=== PATIENT | male | born 1990 | race Caucasian/White ===

== ENCOUNTER 2020-06-15 03:16 | Emergency (ER) | payer SELFPAY ==
[~2020-06-15] VITALS: Ht 172.7 cm; Wt 99.8 kg
[~2020-06-15 03:16] MED LIST: ALBU.083IS; ALBU.083IS IH; ALBU90OI INH; AZIT500 PO; BENZ100A PO; BUPR75 PO; CEFD300; CEFP200 PO; CETI10 PO; CITA20 PO; DOXY100 PO; FEXO60; FLUO20 PO; FLUSAL2505 IH; METPRE4DP PO; MOMENI; PRED20 PO; PROCODE120
[2020-06-15] MEDS ORDERED: Prednisone50 MG PO (04:46)
[2020-06-15] MEDS ORDERED: ALBU2.5V5 INH (05:36)
== END 2020-06-15 05:39 | disposition home or self-care (01) ==
LOC: ER 03:16
DX: J45.901 Unspecified asthma with (acute) exacerbation (principal); Z88.1 Allergy status to other antibiotic agents
CPT/HCPCS: 71045; 94644; 99285-25; J1100